=== PATIENT | female | born 1930 | race Caucasian/White ===

== ENCOUNTER 2017-01-07 09:40 | Emergency (ER) | payer OTHER, BC ==
[~2017-01-07] VITALS: Ht 160 cm; Wt 76.3 kg
[~2017-01-07 09:40] MED LIST: ASACOL HD800 MG PO; COUMADIN1 MG PO; ECOTRIN325 MG PO; LORAZEPAM0.5 MG PO; METAMUCIL PLUS1 EACH PO; METRONIDAZOLE500 MG PO; PANTOPRAZOLE SO40 MG PO; PROTONIX40 MG PO; VALSARTAN-HCTZ1 EAC1 PO; VENTOLIN HFA18 GM IH; WARFARIN SODIUM1 MG PO
[2017-01-07 10:22] LABS: BASOPHIL COUNT 0.1 K/uL (0-0.1); EOSINOPHIL (%) 0.8 % (0-5); EOSINOPHIL COUNT 0.1 K/uL (0-0.3); HEMATOCRIT 43.5 % (36.0-46.0); IMMATURE GRANULOCYTE (%) 0.5 % (0.0-0.7); IMMATURE GRANULOCYTE COUNT 0.1 K/uL; INSTRUMENT ABS NEUTROPHIL CT 10.9 K/uL; LYMPHOCYTE COUNT 1.3 K/uL (1.0-2.8); MCH 30.5 PG (29.0-34.0); MCHC 31.7 G/DL (30.0-36.0); MEAN PLAT.VOLUME 9.8 uM^3 (9.5-12.4); MONOCYTE COUNT 0.9 K/uL (0-0.8); NEUTROPHIL (%) 81.4 % (45-76); NEUTROPHIL COUNT 10.9 K/uL (1.8-6.4); PLATELET COUNT 372 K/uL (156-360); RBC DIS.WIDTH-CV 14.6 % (11.8-14.6); RBC DIS.WIDTH-SD 51.3 % (39-53); RED BLOOD COUNT 4.53 M/uL (3.80-5.20); WHITE BLOOD COUNT 13.3 K/uL (4.1-10.2)
[2017-01-07 10:34] LABS: CHLORIDE 102 mEq/L (99-109); POTASSIUM 3.4 mEq/L (3.7-5.4); SODIUM 141 mEq/L (136-147)
[2017-01-07 10:34] LABS: PROTHROMBIN TIME 11.7 (9.2-11.2)
[2017-01-07 10:35] LABS: GLUCOSE 98 mg/dL (70-99)
[2017-01-07 10:36] LABS: INTER. NORMALIZED RATIO 1.1
[2017-01-07 10:37] LABS: ANION GAP 10 MEQ/L (2-14)
[2017-01-07 10:39] LABS: GFR ESTIMATE (CALCULATED) > 59 mL/min/
[2017-01-07 10:40] LABS: UREA NITROGEN (BUN) 8 mg/dL (9-23)
[2017-01-07 11:04] LABS: ADD MIUA? YES; BILIRUBIN NEGATIVE; BLOOD LARGE; COLOR RED ((YELLOW)); GLUCOSE (STRIP) NEGATIVE; KETONES NEGATIVE; LEUKOCYTES SMALL; NITRITE NEGATIVE; PROTEIN (STRIP) 30; UROBILINOGEN 0.2 MG/DL (0.2-1.0)
[2017-01-07 11:09] LABS: RED BLOOD CELLS TNTC /HPF (0-5); UCUL ADDED? YES
[2017-01-07] MEDS ORDERED: CIPRO250 MG PO (13:02)
[2017-01-07 13:25] VITALS: BP 158/79
== END 2017-01-07 18:58 | disposition home or self-care (01) ==
LOC: EME 09:40
PROVIDERS: Emergency Medicine
DX: R31.9 Hematuria, unspecified (principal); Q63.1 Lobulated, fused and horseshoe kidney; I10 Essential (primary) hypertension; J44.9 Chronic obstructive pulmonary disease, unspecified; Z86.711 Personal history of pulmonary embolism; Z79.01 Long term (current) use of anticoagulants; Z87.891 Personal history of nicotine dependence
CPT/HCPCS: 74176; 80048; 81003; 85025; 85610; 87077; 87086; 87186; 99281; 99284